=== PATIENT | female | born 1960 | race Caucasian/White ===

== ENCOUNTER 2019-10-20 22:35 | Inpatient (IN) | payer BC ==
[~2019-10-20] VITALS: Ht 172.7 cm; Wt 62.8 kg
--- NOTE | 2019-10-20 22:49 | NUR ---
MARVIN RN: 58 Y/O FEMALE BIB EMS FROM [facility] FOR CHEST PAIN. THE PT REPORTS A SUDDEN ONSET OF SHARP/PRESSURE PAIN 10/10, THAT STARTED TODAY AT 1730. PT REPORTS THE PAIN RADIATED TO BOTH ARMS. SHE TOOK ASA AND WENT TO [facility] FOR EVALUATION. HER FIRST TROP WAS 0.03, THE NEXT TROP WAS 0.26. PT HAS A HX OF PE, RA AND MITRAL VALVE PROLAPSE. UPON ARRIVAL TO THE ER, THE PT IS ALERT AND ORIENTED, DENIES ANY PAIN, REPORTS SLIGHT PRESSURE. SKIN IS PINK/WARM/DRY. SHE HAS BILATERAL 20G IVS[address] DR[address] WELLER IS AT BEDSIDE EVALUATING PT. ALL MONITORING EQUIPMENT APPLIED. SHOWING NSR ON MONITOR, NO ST CHANGES, NO ECTOPY NOTED. AT BEDSIDE. CALL LIGHT WITHIN REACH. REPORT TO PRIMARY RN, MICHOACANO. ONLY MEDS PT RECEIVED AT SENDING FACILITY WAS 60MG OF LOVENOX
[2019-10-20] MEDS ORDERED: POLYETHYLENE GLYCOL 17 GM PACKET PO PRN (23:30)
[2019-10-20] MEDS ORDERED: ONDANSETRON ODT 4 MG PO PRN (23:30)
[2019-10-20] MEDS ORDERED: POTASSIUM CHLORIDE 20 MEQ TAB.ER.PRT PO ONE (23:30)
[2019-10-20] MEDS ORDERED: morphine SULFATE 10 MG/ML, 1ML IVPush PRN (23:30)
[2019-10-20] MEDS ORDERED: PLEASE ENTER HEIGHT AND WEIGHT MC SCH (23:30)
[2019-10-20] MEDS: SODIUM CHLORIDE FLUSH 10ML SYR IVF SCH (23:30)
[2019-10-20] MEDS ORDERED: ACETAMINOPHEN 325 MG TABLET PO PRN (23:30)
[2019-10-20] MEDS ORDERED: BISACODYL 10 MG SUPP PR PRN (23:30)
[2019-10-20] MEDS ORDERED: NITROGLYCERIN 0.4 MG BOTTLE (25 TABS) SL PRN (23:30)
[2019-10-21] MEDS ORDERED: POTASSIUM CHLORIDE 20 MEQ TAB.ER.PRT ONE (00:03)
--- NOTE | 2019-10-21 00:26 | NUR ---
PATIENT TRANSFERED TO FLOOR WITH TECH ON [employer]. NO NOTED ACUTE DISTRESS. PATIENT DENIES ANY FURTHER NEEDS. PATIENT GIVEN PO POTASSIUM PER ADMISSION RN REQUEST. PATIENT TOLERATED WELL.
[2019-10-21 00:47] LABS: TROPONIN I 0.913 ng/mL (0.000-0.045)
[2019-10-21] MEDS ORDERED: PRED1TAB19 PO (01:12)
[2019-10-21 01:17] VITALS: BP 112/78
[2019-10-21] MEDS ORDERED: HEPARIN 5,000 UNITS/ML, 1ML IV PRN ×2 (02:00→09:30)
[2019-10-21] MEDS ORDERED: HEPARIN 25,000 UNITS/250ML PMX 250 ML IV PRN ×2 (02:00→09:30)
[2019-10-21] MEDS ORDERED: ASPIRIN 81 MG TABLET EC PO SCH (06:00)
[2019-10-21] MEDS ORDERED: ASPIRIN 325 MG TABLET EC PO SCH (06:00)
[2019-10-21 06:44] LABS: BASOPHILS # (AUTO) 0.03 x10^3/uL (0-0.1); BASOPHILS % (AUTO) 1 % (0-1); EOSINOPHILS # (AUTO) 0.12 x10^3/uL (0-0.4); EOSINOPHILS % (AUTO) 2 % (1-7); LYMPHOCYTES # (AUTO) 2.42 x10^3/uL (1-3.4); LYMPHOCYTES % (AUTO) 39 % (22-44); MD NO; MEAN CORPUSCULAR HEMOGLOBIN 31.1 pg (27.0-34.8); MEAN CORPUSCULAR HGB CONC 33.6 g/dL (32.4-35.8); MEAN CORPUSCULAR VOLUME 92.5 fL (80-100); MEAN PLATELET VOLUME 9.6 fL (7.4-10.4); MONOCYTES % (AUTO) 10 % (2-9); NEUTROPHILS # (AUTO) 3.08 x10^3/uL (1.8-6.8); NEUTROPHILS % (AUTO) 49 % (42-75); PLATELET COUNT 171 x10^3/uL (130-400); RED BLOOD COUNT 4.76 x10^6/uL (3.82-5.3); RED CELL DISTRIBUTION WIDTH 12.9 % (9.6-15.2)
[2019-10-21 06:52] LABS: ANION GAP 6 mmol/L (5-15); CHLORIDE 112 mmol/L (98-107)
[2019-10-21 06:58] LABS: CHOL/HDL RATIO 2.1; CHOLESTEROL, TOTAL 173 mg/dL (140-239); CREATININE 0.74 mg/dL (0.55-1.02); HDL CHOL % 47 % (28-40); HDL CHOLESTEROL (DIRECT) 82 mg/dL (40-60); LDL CHOLESTEROL,CALCULATED 74 mg/dL (54-169); LDL/HDL RATIO 0.9 (0.5-3.0); TRIGLYCERIDES 85 mg/dL (50-200); TROPONIN I 0.527 ng/mL (0.000-0.045); VLDL CHOLESTEROL 17 mg/dL (0-25)
[2019-10-21 07:10] VITALS: BP 112/74
[2019-10-21] MEDS: SODIUM CHLORIDE FLUSH 10ML SYR IVF SCH (08:00)
[2019-10-21] MEDS ORDERED: SENNA/DOCUSATE TABLET PO SCH (09:00)
[2019-10-21] MEDS ORDERED: HEPARIN/D5W 25,000 UNITS/250 ML PREMIX IV SCH (09:00)
[2019-10-21 12:44] VITALS: BP 115/75
[2019-10-21 12:50] LABS: TROPONIN I 0.245 ng/mL (0.000-0.045)
[2019-10-21] MEDS ORDERED: OMNIPAQUE 350 MG/ML, 100ML BOTTLE ONE (15:32)
[2019-10-21] MEDS ORDERED: ISOS30TA8 PO (16:27)
[2019-10-21] MEDS ORDERED: ASPI81TA45 PO (16:27)
== END 2019-10-21 18:07 | disposition home or self-care (01) | DRG 313 ==
LOC: ED 23:18 → EDIP 23:31 → 5SO 10-21 00:34
PROVIDERS: ADMIT Internal Medicine; ATTEND Internal Medicine
DX: R07.89 Other chest pain (principal); M06.9 Rheumatoid arthritis, unspecified; R79.89 Other specified abnormal findings of blood chemistry; Z86.711 Personal history of pulmonary embolism; Z86.79 Personal history of other diseases of the circulatory system; Z20.828 Contact with and (suspected) exposure to other viral communicable diseases; Z88.2 Allergy status to sulfonamides
CPT/HCPCS: 36415; 71275; 78452; 80048; 80061; 84484; 85025; 85520; 93005; 93017; 93306; Q9967; A9502; U0001-CS

== ENCOUNTER 2019-11-18 10:04 | Day surgery (SDC) | payer BC ==
[~2019-11-18] VITALS: Ht 172.7 cm; Wt 60.9 kg
[~2019-11-18 10:04] MED LIST: ASPI81TA45 PO; ISOS30TA8 PO; PRED1TAB19 PO
[2019-11-18] MEDS ORDERED: SODIUM CHLORIDE 0.9% 1,000 ML IV SCH ×3 (10:27→17:00)
[2019-11-18 10:31] VITALS: BP 114/72
[2019-11-18 10:50] LABS: BASOPHILS # (AUTO) 0.02 x10^3/uL (0-0.1); BASOPHILS % (AUTO) 0 % (0-1); EOSINOPHILS # (AUTO) 0.01 x10^3/uL (0-0.4); EOSINOPHILS % (AUTO) 0 % (1-7); LYMPHOCYTES # (AUTO) 1.05 x10^3/uL (1-3.4); LYMPHOCYTES % (AUTO) 16 % (22-44); MD NO; MEAN CORPUSCULAR HEMOGLOBIN 31.1 pg (27.0-34.8); MEAN CORPUSCULAR HGB CONC 33.7 g/dL (32.4-35.8); MEAN CORPUSCULAR VOLUME 92.2 fL (80-100); MEAN PLATELET VOLUME 9.5 fL (7.4-10.4); MONOCYTES # (AUTO) 0.29 x10^3/uL (0.2-0.8); MONOCYTES % (AUTO) 4 % (2-9); NEUTROPHILS # (AUTO) 5.25 x10^3/uL (1.8-6.8); NEUTROPHILS % (AUTO) 79 % (42-75); PLATELET COUNT 168 x10^3/uL (130-400); RED BLOOD COUNT 4.56 x10^6/uL (3.82-5.3)
[2019-11-18 11:01] LABS: ANION GAP 7 mmol/L (5-15); CHLORIDE 110 mmol/L (98-107); CREATININE 0.76 mg/dL (0.55-1.02)
[2019-11-18] MEDS ORDERED: FENTANYL PF 250 MCG/5ML ONE (14:24)
[2019-11-18] MEDS ORDERED: MIDAZOLAM 1 MG/ML, 2ML ONE (14:24)
[2019-11-18] MEDS ORDERED: MIDAZOLAM 1 MG/ML, 5ML ONE (14:24)
[2019-11-18] MEDS ORDERED: HEPARIN 1,000 UNITS/ML, 10ML ONE (14:25)
[2019-11-18] MEDS ORDERED: BIVALIRUDIN 250 MG ONE (14:25)
[2019-11-18] MEDS ORDERED: LIDOCAINE-MPF 1%, 5ML ONE (14:25)
[2019-11-18] MEDS ORDERED: VERAPAMIL 2.5 MG/ML, 2ML ONE (14:52)
== END 2019-11-18 16:42 | disposition home or self-care (01) ==
LOC: CACL 10:04
PROVIDERS: ATTEND Internal Medicine Cardiovascular Disease
DX: I20.8 Other forms of angina pectoris (principal); Z79.82 Long term (current) use of aspirin; Z79.899 Other long term (current) drug therapy; Z86.711 Personal history of pulmonary embolism; Z88.2 Allergy status to sulfonamides
CPT/HCPCS: 36415; 80048; 85025; 93458; 99156; C1769; C1894; J1644; J2250; J3010; Q9967; J0583